=== PATIENT | female | born 1940 | race Caucasian/White ===

== ENCOUNTER 2019-01-29 21:58 | Observation (INO) | payer MEDICARE, OTHER ==
[~2019-01-29] VITALS: Ht 165.1 cm; Wt 73.8 kg
--- NOTE | 2019-01-29 22:37 | NUR ---
PT FROM TRIAGE WITH C/O CHEST PAIN, INTERMITTANT, SHORT OF BREATH
[2019-01-29] MEDS ORDERED: ASPIRIN 81 MG TABLET CHEW ONE (22:45)
--- NOTE | 2019-01-29 22:58 | NUR ---
PLACED ON ALL MONITORS PT IN NAD
[2019-01-29] MEDS ORDERED: ASPIRIN 81 MG TABLET CHEW PO ONE (23:00)
[2019-01-29 23:13] LABS: BASOPHILS # (AUTO) 0.03 x10^3/uL (0-0.1); BASOPHILS % (AUTO) 1 % (0-1); EOSINOPHILS # (AUTO) 0.18 x10^3/uL (0-0.4); EOSINOPHILS % (AUTO) 3 % (1-7); LYMPHOCYTES # (AUTO) 0.53 x10^3/uL (1-3.4); LYMPHOCYTES % (AUTO) 8 % (22-44); MD NO; MEAN CORPUSCULAR HEMOGLOBIN 30.6 pg (27.0-34.8); MEAN CORPUSCULAR HGB CONC 33.9 g/dL (32.4-35.8); MEAN PLATELET VOLUME 8.5 fL (7.4-10.4); MONOCYTES # (AUTO) 0.57 x10^3/uL (0.2-0.8); MONOCYTES % (AUTO) 9 % (2-9); NEUTROPHILS # (AUTO) 5.11 x10^3/uL (1.8-6.8); NEUTROPHILS % (AUTO) 80 % (42-75); PLATELET COUNT 227 x10^3/uL (130-400); RED BLOOD COUNT 3.75 x10^6/uL (3.82-5.3); RED CELL DISTRIBUTION WIDTH 13.1 % (9.6-15.2)
[2019-01-29 23:25] LABS: ALANINE AMINOTRANSFERASE 27 U/L (12-78); ALBUMIN 3.8 g/dL (3.4-5.0); ANION GAP 6 mmol/L (5-15); CALCIUM 9.2 mg/dL (8.5-10.1); CHLORIDE 107 mmol/L (98-107)
[2019-01-29 23:29] LABS: ALKALINE PHOSPHATASE 64 U/L (45-117); BILIRUBIN,TOTAL 0.4 mg/dL (0.2-1.0); TOTAL PROTEIN 7.8 g/dL (6.4-8.2); TROPONIN I < 0.015 ng/mL (0.000-0.045)
[2019-01-30] MEDS ORDERED: HYDR-3341 PO (00:07)
[2019-01-30] MEDS ORDERED: ATOR40TA78 PO (00:08)
[2019-01-30] MEDS ORDERED: AMLO2.5T2 PO (00:08)
[2019-01-30] MEDS ORDERED: LOSA25TA2 PO (00:09)
[2019-01-30] MEDS ORDERED: METO1TAB18 PO (00:09)
[2019-01-30] MEDS ORDERED: ESOM20CA PO (00:10)
[2019-01-30] MEDS ORDERED: ASPI-496 PO (00:11)
--- NOTE | 2019-01-30 00:11 | NUR ---
AWAITING ADMIT BED
[2019-01-30] MEDS ORDERED: POLYETHYLENE GLYCOL 17 GM PACKET PO PRN (00:30)
[2019-01-30] MEDS ORDERED: morphine SULFATE 10 MG/ML, 1ML IVPush PRN (00:30)
[2019-01-30] MEDS ORDERED: hydrALAzine 20 MG/ML, 1ML IVPush PRN (00:30)
[2019-01-30] MEDS ORDERED: ONDANSETRON 2MG/ML, 2ML IVPush PRN (00:30)
--- NOTE | 2019-01-30 00:31 | NUR ---
report to mo pt to room with tech
[2019-01-30 01:18] LABS: TROPONIN I < 0.015 ng/mL (0.000-0.045)
[2019-01-30 01:27] VITALS: BP 150/72
[2019-01-30 02:00] VITALS: BP 150/72
[2019-01-30] MEDS: HEPARIN 5,000 UNITS/ML, 1ML SQ SCH ×2 (02:04→08:30)
[2019-01-30 06:52] LABS: TROPONIN I < 0.015 ng/mL (0.000-0.045)
[2019-01-30 07:08] VITALS: BP 126/65
[2019-01-30] MEDS ORDERED: LOSARTAN 25MG TABLET PO SCH ×2 (09:00)
[2019-01-30] MEDS ORDERED: AMLODIPINE 5 MG TABLET PO SCH (09:00)
[2019-01-30] MEDS ORDERED: ASPIRIN 81 MG TABLET EC PO SCH (09:00)
[2019-01-30] MEDS ORDERED: REGADENOSON 0.4 MG/5 ML SYRINGE ONE (09:10)
[2019-01-30 13:49] VITALS: BP 135/71
[2019-01-30] MEDS ORDERED: ATORVASTATIN 40 MG TABLET PO SCH (21:00)
== END 2019-01-30 18:17 | disposition home or self-care (01) ==
LOC: ED 22:56 → EDIP 23:54 → INTOOBSV 23:54 → 5SO 01-30 01:02
PROVIDERS: ADMIT Family Medicine; ATTEND Family Medicine
DX: R07.89 Other chest pain (principal); I25.10 Atherosclerotic heart disease of native coronary artery without angina pectoris; I10 Essential (primary) hypertension; K21.9 Gastro-esophageal reflux disease without esophagitis; E78.5 Hyperlipidemia, unspecified; Z79.82 Long term (current) use of aspirin; Z79.899 Other long term (current) drug therapy
CPT/HCPCS: 36415; 71045; 78452; 80053; 83690; 83880; 84484; 85025; 93005; 93017; 93971; 96372; 99284; A9502; C9898; G0378; J1644; J2785